=== PATIENT | male | born 2000 | race Two or more races ===

== ENCOUNTER 2022-12-12 04:22 | Emergency (ER) | payer OTHER ==
[~2022-12-12] VITALS: Ht 175.3 cm; Wt 79.4 kg
[2022-12-12] MEDS ORDERED: AMOX-CLAV 875-1 EAC1 PO (08:30)
[2022-12-12] MEDS ORDERED: KETO10TA2 PO (08:30)
== END 2022-12-12 08:48 ==
LOC: ER 04:22
DX: S01.02XA Laceration with foreign body of scalp, initial encounter (principal); X58.XXXA Exposure to other specified factors, initial encounter; Y93.89 Activity, other specified; Y92.9 Unspecified place or not applicable